=== PATIENT | female | born 1940 | race Caucasian/White ===

== ENCOUNTER 2016-04-01 17:30 | Inpatient (IN) | payer BC, MEDICARE ==
[~2016-04-01] VITALS: Ht 162.6 cm; Wt 67.4 kg
--- NOTE | ~2016-04-01 | CON ---
PATIENT'S NAME: PONCE COON [facility] AGE: 76 Y [address] ROOM: [address] [address] [place] [facility] [place]: 04/01/2016 Consultation DISCHARGE DATE: FAMILY PHYSICIAN: Pastor Fleming MD ATTENDING PHYSICIAN: OLIVIA SALCEDO DATE OF CONSULTATION: 04/02/2016 REFERRING PHYSICIAN: Penelope Najera MD NEUROLOGIC CONSULTATION TIME: 2:45 p.m. REASON FOR CONSULTATION: Worsening dementia. HISTORY OF PRESENT ILLNESS: This is a 76-year-old female, known to me professionally, who presents with dementia. According to the daughter, the patient has retired 2 years ago due to problems with memory. She actually saw Dr. Hanna in clinic in April 2015, and her MoCA at that time was remarkably well except for remembering items 3 minutes later. Her language and speech and thoughts were intact at that time. The daughter states since September, her dementia has gotten much worse. She has verbal outbursts, she thinks she is the president, she washed her hands in spaghetti sauce, and she tried to clean a hot stove. She also has some paranoia, using the cell phone she thinks the JEANCARLOS is listening in on her. This is now her new baseline. Most of the time, she is alert and oriented x3, but the patient has been having some headaches and grabbing the top of her head. The patient presented to the [facility] with a sodium of 125 and was referred to the hospital. Her sodium last month in the clinic was normal. She did have a urinalysis in the clinic too, which was normal. She has chronic anemia and hemochromatosis at baseline, but her CBC was baseline. On interviewing the patient, her memory from long-term is remarkably intact. 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 When we get to present day, she is a little bit more not intact. She states she is the president. She states she wants IV out of her arm because there is a needle in there, and it does not need to be there. She is also writing, and her writing is quite large, and she states she is the president. On the unit, the nurses state the patient does scream at times and not participate in the plan of care. She denies any falls or trauma, and daughter supports that statement. REVIEW OF SYSTEMS: In the review of systems, the patient denies any headache, pain at this time. Her only pain is with her IV. She denies any dizziness or vision loss. She does not participate fully in the interview and trying to change the subject PATIENT'S NAME: PONCE COON [facility] AGE: 76 Y [address] ROOM: [place] [address] [place] [facility] [place]: 04/01/2016 Consultation DISCHARGE DATE: FAMILY PHYSICIAN: Pastor Fleming MD ATTENDING PHYSICIAN: OLIVIA SALCEDO and winifred on certain subjects. PAST MEDICAL HISTORY: Includes diabetes type 2, supposed vascular dementia, depression, hyperlipidemia, and hypertension. ALLERGIES: SHE IS ALLERGIC TO CODEINE, WHICH MAKES HER SICK. HOME MEDICATIONS: 1. Trazodone 50 mg at h.s. 2. Namenda 5 mg p.o. b.i.d. 3. Aldactone 25 mg p.o. daily. 4. Altace 10 mg p.o. daily. 5. Tricor 145 mg daily. 6. Donepezil 10 mg p.o. q.h.s. 7. Metformin 1000 mg p.o. b.i.d. 8. Ferrous sulfate 325 mg p.o. daily. 9. Starlix 120 mg p.o. t.i.d. 10. Folic acid 0.8 mg p.o. daily. 11. Aspirin 81 mg p.o. q.h.s. 12. Vitamin D3 1000 units. She actually takes 2000 units p.o. daily. 13. Magnesium oxide 250 mg p.o. q.h.s. 14. Melatonin 3 mg x2 for a total of 6 mg p.o. q.h.s. 15. Multivitamin with calcium, iron, and minerals, she takes one tab p.o. daily. 16. Paroxetine HCl. 17. Vitamin B6 100 mg p.o. daily. 18. 500 mg p.o. daily. PAST SURGICAL HISTORY: She has had no surgeries. FAMILY HISTORY: Her father from lung cancer. He was a heavy smoker. Her mother from old age, but she could not remember what was the cause. SOCIAL HISTORY: Ponce is . Her is a professor at [employer]. She has a daughter that lives here in [place] and has been her caregiver during these episodes. PHYSICAL EXAMINATION: VITAL SIGNS: Blood pressure is 127/56, heart rate 62, respirations 18, and temperature afebrile. She is saturating 100% on room air. She denies pain at this time. PATIENT'S NAME: PONCE COON [facility] AGE: 76 Y [address] ROOM: [id number] [place], [place] [address] [place] [facility] [place]: 04/01/2016 Consultation DISCHARGE DATE: FAMILY PHYSICIAN: Pastor Fleming MD ATTENDING PHYSICIAN: OLIVIA SALCEDO GENERAL APPEARANCE: She is alert and oriented x2, in no acute distress. She does not know she is in the hospital at times. She does participate in the examination and the interview. HEENT: Her pupils are equal, round, and reactive to light. Nystagmus is not appreciated. Extraocular muscles intact. NECK: With no JVD. No cervical lymphadenopathy. No neck stiffness. No goiter. Appropriate posture. CARDIOVASCULAR: Regular rate and rhythm. Normal S1, S2 with no murmur, no rubs, no gallops. RESPIRATORY: Clear to auscultation bilaterally. ABDOMEN: Soft, nontender, nondistended with normal bowel sounds. NEUROLOGIC: She is able to state that she is in the hospital at [facility]. She perseverates on the sodium issue. She states she eats salt. She does not know why she is here, and that this is not a reason to be in the hospital. This is the fact that she does over and over on her exam. As far as motor skills, I will give her a 5/5 on the upper right and left, and lower right and left legs. Her sensation appears intact, although this is difficult for the patient to ascertain. I see no cogwheeling, no rigidity. Her gait is slightly shuffling. She does not have a flat affect. She will at times burst into loud yelling if she does not get her way immediately. DIAGNOSTICS: Included MRI done on March 21. It shows moderate cerebral atrophy with no significant senescent white matter disease. There is no acute ischemia, no hemorrhage, or extra-axial fluid or blood. There is normal pituitary and optic chiasm. Normal orbits. The intracranial vascular flow voids are symmetric and normal. She has in the moderate cerebral atrophy without focal brain lesions or significant senescent white matter disease in summary. She did have a TSH level of 3.310, which is within the normal range on our laboratory values. Her vitamin B12 was 439, which is in the normal range for our lab values. Her free T4 was 1.1, which is in the normal range. Her vitamin D total level done in September was 52.4, which is improving. Again, she appears anemic with a hemoglobin of 9.4, and MCV of 91.4, and MCH of 29.8. Her MPV was 9.3, platelets were 391,000, white count was 6600. ASSESSMENT AND PLAN: 1. Dementia. Difficult to classify this as a vascular dementia based on the MRI results. This patient also does not appear to have vascular disease. Question if this is a mixed dementia, such as Alzheimer's and frontotemporal dementia, especially with the behavioral issues. The patient has not had any seizure activity, and we can move forward with treating her with the Namenda and donepezil as ordered. She is getting the trazodone at night. Also, I will discuss with Dr. Hanna the possibility of adding an antipsychotic for behavioral issues, especially in light of this patient's possible Alzheimer's or frontotemporal PATIENT'S NAME: PONCE COON [facility] AGE: 76 Y [address] ROOM: [place] [address] [place] [facility] [place]: 04/01/2016 Consultation DISCHARGE DATE: FAMILY PHYSICIAN: Pastor Fleming MD ATTENDING PHYSICIAN: OLIVIA SALCEDO dementia symptoms. 2. Hyponatremia. This is being resolved and under the care of the hospitalist. 3. Diabetes type 2 is well controlled. 4. Depression. The patient is on Celexa. This does not seem to help the patient at all, and this has been discontinued by the hospitalist. I support this finding. 5. Hypertension. Once again, well-controlled by the hospitalist. 6. Hyperlipidemia, and the patient is on medications for this. Significant amount of time was spent obtaining old records for this patient from family practice. Attempted to obtain old records from Dr. Najera at [facility] but did not receive any. Quite a bit of time was spent with the patient and the family. They are having a hard time wrapping their mind around a dementia diagnosis. The patient's daughter especially did not buy the vascular dementia with the MRI not showing any kinds of infarcts. I discussed with her at length that, although the diagnosis may be tweaked, the outcome may be the same. Discussed the possibility of adding antipsychotic medications, and she is in agreement on that. All questions were answered that the daughter and the raised. Would recommend follow up in neurology clinic for medicaiton management. Thank you for this very interesting consult. If you have any questions, please do not hesitate to ask. PENELOPE SAMANIEGO APRN FOR JENNA HANNA MD PP/modl /[id number] d: 04/03/16 2305 t: 04/21/16 1536, CONSULTATION REPORT
--- NOTE | ~2016-04-01 | HP ---
PATIENT'S NAME: PONCE COON [facility] AGE: 76 Y [address] ROOM: [address] [address] [place] [facility] [place]: 04/01/2016 History & Physical DISCHARGE DATE: FAMILY PHYSICIAN: Pastor Fleming MD ATTENDING PHYSICIAN: OLIVIA SALCEDO DATE OF SERVICE: CHIEF COMPLAINT: Acute hyponatremia. HISTORY OF PRESENT ILLNESS: This is a 76-year-old female, who at baseline has vascular dementia. The story is obtained from the patient's daughter. The story is that at baseline the patient has vascular dementia and occasionally the patient has bizarre delusion such as she thinks that a cup of tea is actually a cup of coffee. She also thinks that every time somebody give her a cellphone to listen, she think the JEANCARLOS is calling her. This is her usual baseline. Most of the time, she is alert and oriented x3. However, the daughter noticed that yesterday, the patient was complaining of diffuse headache, unclear what intensity, and the patient got very upset by talking with a very loud voice and this is not her usual behavior. The patient's daughter gave her some coffee because the patient was asking for some coffee, but instead the daughter gave her some tea and the patient thought that it was actually coffee and she drank it and her headache went away totally. Initially, the daughter wanted to take the patient to the clinic, however, the patient refused to go. Today, the patient complained of headache again and again the patient's daughter gave her a cup of tea and the patient thought that it was a coffee, she drank it and headache improved again. The patient's daughter tried to ask her to go to see the physician again for evaluation and the patient refused again. Therefore, the patient's daughter give her the phone, saying that the JEANCARLOS was telling her to go and the patient agree because JEANCARLOS told her to go. The patient was seen in the clinic today at an outside facility [facility] the [facility] and the patient's sodium was found to be at 125, which when compared to the last month it was normal. This was given to me over the phone by the transferring physician fitter's assistant. I do not have the blood work documentation from last month here with the patient and the clinic is already closed. We do not have any blood work in our [facility] from the past to compare either. She also had a urinalysis, which was negative and CBC has a chronic anemia at baseline, otherwise other blood work were unremarkable. No imaging test was performed in the clinic. The patient was sent over here for management of hyponatremia apparently acute and somewhat asymptomatic. On interviewing the patient, the patient is alert and oriented x3 and answer my question appropriately and denies any headache. On neurological examination, there was no focal deficit at all. The patient is not drowsy, she is not sleepy, and she is very awake and very oriented x3. Upon further PATIENT'S NAME: PONCE COON [facility] AGE: 76 Y [address] ROOM: [place] [address] [place] [facility] [place]: 04/01/2016 History & Physical DISCHARGE DATE: FAMILY PHYSICIAN: Pastor Fleming MD ATTENDING PHYSICIAN: OLIVIA SALCEDO questioning, the patient is a very picky eater where she only eats the food she likes. If she is given some food that she does not like, she does not touch it; but even with some food that she likes, she only eats half of the food because she states that she does not want to gain too much weight. For the last few days, the patient also says that she has been having some poor appetite on top of her being very picky eater. No nausea. No vomiting. No diarrhea. No recent illness. No chest pain. No shortness of breath. No headache. No vision change. No recent fall. Her last fall was roughly 1 to 2 months ago, it was unwitnessed, and the patient denies any head trauma or any loss of consciousness at that time. REVIEW OF SYSTEMS: As mentioned in the history of present illness, all other systems reviewed and negative except those mentioned in the history of present illness. PAST MEDICAL HISTORY: 1. Diabetes type 2. 2. Vascular dementia. 3. Depression. 4. Hyperlipidemia. 5. Hypertension. ALLERGIES: CODEINE, WHICH MAKES HER SICK. HOME MEDICATIONS: Is currently being reconciled. She does not take any herbal medicine. SOCIAL HISTORY: The patient denies any cigarette, alcohol, or any illegal drug use. This is confirmed with the patient's daughter at the bedside. PAST SURGICAL HISTORY: None. FAMILY HISTORY: Father from lung cancer, he was heavy smoker at advanced age. Mother from old age following a cause that she could not remember. PHYSICAL EXAMINATION: VITAL SIGNS: At the time of my dictation; blood pressure 132/55, heart rate 59, respirations 24, temperature 97.9, saturation 100% on room air, and pain 0/10. GENERAL APPEARANCE: Alert and oriented x3, in no acute distress. Answer questions appropriately and follow commands appropriately. PATIENT'S NAME: PONCE COON [facility] AGE: 76 Y [address] ROOM: [address] [address] [place] [facility] [place]: 04/01/2016 History & Physical DISCHARGE DATE: FAMILY PHYSICIAN: Pastor Fleming MD ATTENDING PHYSICIAN: OLIVIA SALCEDO HEENT: Pupils equally round and reactive to light. Extraocular muscles intact. No anicteric sclerae. Nasal turbinates are normal bilaterally. Moist oral mucosa. NECK: No JVD. No cervical lymphadenopathy. No neck stiffness. No goiter. CARDIOVASCULAR: Regular rate and rhythm. Normal S1 and S2. No murmur. No rubs. No gallops. RESPIRATORY: Clear. Chest wall nontender to palpation. ABDOMEN: Soft, nontender, nondistended, normal bowel sounds, no hepatosplenomegaly. EXTREMITIES: No edema in upper or lower extremities. NEUROLOGIC: Grossly nonfocal. SKIN: No ulcer. No rash. No cyanosis. MUSCULOSKELETAL: No joint pain. No muscle pain. GENITOURINARY: Not examined given that it is not related to this admission. LABORATORY DATA: Laboratory data performed from the outside facility in the medical clinic in the [facility] today show urinalysis negative for UTI. White blood cells 7.0, hemoglobin 10.6, hematocrit 32.2, and platelet 407. Total protein 7.3, albumin 4.0, globulin 3.3, total bilirubin 0.2, alkaline phosphatase 71, ALT 29, AST 58, glucose 226, calcium 10.0, BUN 20, creatinine 0.9, GFR more than 60, sodium 125, potassium 4.8, chloride 90, CO2 of 24, and anion gap 11. IMAGES: No imaging test was performed while in the outside facility. ASSESSMENT AND PLAN: 1. Acute hyponatremia: I will consider this as acute asymptomatic hyponatremia given that the patient currently on my neurologic exam, the patient does not have any neurological deficit. The patient is alert, oriented x3, and in no acute distress. There is no seizure activity. There is no confusion. There is no altered mental status. There is no encephalopathy. There is no somnolence. Given that the patient had a fall one month ago and due to the acute confusion as described by the patient's daughter 2 days ago, I will go ahead and get a CT scan of the brain without contrast. I will also get blood work including hyponatremia workup including urine sodium, urine osmolality, and serum osmolarity with repeat labs in the morning again. I will also check a TSH and vitamin B12. I have already placed a phone call to on-call offline editor, Dr. Barbosa, and I have given him my personal assessment and what I think of the patient is having. I think, the patient has hypovolemia and hyponatremia from decreased oral intake and being a picky eater, and the patient was dry on examination. The plan will be normal PATIENT'S NAME: PONCE COON [facility] AGE: 76 Y [address] ROOM: [place] [address] [place] [facility] [place]: 04/01/2016 History & Physical DISCHARGE DATE: FAMILY PHYSICIAN: Pastor Fleming MD ATTENDING PHYSICIAN: OLIVIA SALCEDO saline 100 mL over 2 hours and check a sodium again and then will call the sodium report to Dr. Barbosa directly. Further plan depends on clinical course. I have already formulated the plan of care with the on- call offline editor, Dr. Barbosa, based on my personal assessment and I also explained to the nurses about the plan of care. 2. Regarding her diabetes type 2: I will check A1c in the morning and put on a sliding scale insulin and titrate as necessary. 3. Regarding her vascular dementia: Continue home dementia medication. 4. Depression: Continue home depression medication. 5. Hypertension: Continue home blood pressure medication. 6. Hyperlipidemia: Continue home antilipid medication. Currently, medication list is being reconciled and will be addressed once the medication list is ready. 7. Deep venous thrombosis prophylaxis. Compression devices. If the head CT did not show any bleeding, can start with Lovenox or heparin subcu for deep venous thrombosis prophylaxis. Time spent on the day of admission 40 minutes including chart review, examining and interviewing the patient, addressing all the questions and concerns that the patient and the patient's daughter had at the bedside. I also went over plan of care with the patient and the patient's daughter at the bedside. I also went over the plan of care with the nurse also. Further plan depends on clinical course. MD MARTIN LÓPEZ/ever /[id number] D: [id number] T: [id number] HISTORY & PHYSICAL
--- NOTE | ~2016-04-01 | DS ---
PATIENT'S NAME: PONCE COON [facility] AGE: 76 Y [address] ROOM: [place] [address] [place] [facility] [place]: 04/01/2016 Discharge Summary DISCHARGE DATE: 04/03/2016 FAMILY PHYSICIAN: Pastor Fleming MD ATTENDING PHYSICIAN: Mckay Pierce PRINCIPAL DISCHARGE DIAGNOSIS: Hyponatremia. SECONDARY DIAGNOSIS: 1. Dementia. 2. Diabetes mellitus. 3. Dyslipidemia. 4. Hypertension. CONSULTATIONS: 1. Neurology, Dr. Hanna, on 04/02/2016. 2. Dr. Barbosa, Nephrology, on 04/02/2016. PROCEDURES: None. COMPLICATIONS: None. 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 She has been at home with her daughter. She has been developing what has becoming more rapidly progressive dementia. Two days prior to admission, she has not been feeling well, was change in her intake, she was seen at the primary care physician's office with a sodium of 126 and admitted to the hospital for further evaluation and management. The patient was a little bit more confused. Prior to admission, she had been developing some agitation. She also had some delusions. She also had excessive intake of water. She was placed on a fluid restriction and her sodium corrected immediately. Currently sodium is 137. Dr. Hanna saw her today in consultation with his nurse practitioner, who had a long discussion with the family yesterday. The past medical record as mentioned that she has vascular dementia, it is unclear how that diagnosis was made and based on imaging and history, this is more likely an Alzheimer's type dementia with behavioral disturbances. Recommendations from Neurology today are to wean off the Celexa, I have told the daughter to take one tab every other day for seven doses and then one tab every third day for seven doses and she should be able to stop at that time. LABORATORY DATA: Her glucoses have ranged from 91 to 210. Complete metabolic panel from today showed sodium 137, potassium 4.9, chloride 105, CO2 22, PATIENT'S NAME: PONCE COON [facility] AGE: 76 Y [address] ROOM: [place] [address] [place] [facility] [place]: 04/01/2016 Discharge Summary DISCHARGE DATE: 04/03/2016 FAMILY PHYSICIAN: Pastor Fleming MD ATTENDING PHYSICIAN: Mckay Pierce glucose 93, calcium 9.4, BUN 21, creatinine 1.1 with EGFR of 48. Total protein and albumin slightly low at 5.9 and 3.2. Magnesium was 2.3. Her vitamin B12 level is 439, her free T4 was 1.1. TSH was 3.310. Complete blood count on the day of admission on 04/02/2016, showed white blood cells 6.6, mild anemia with a hemoglobin 9.4, hematocrit 28.8, platelets 291,000. CT of the head showed moderate atrophy. No masses or hemorrhages. No extra-axial fluid or blood ever since sinuses were found to be normal. At this time, daughter and the patient are in agreement with discharge to home. There may be a plan for a memory unit admission after this. INSTRUCTIONS AT DISCHARGE: DIET: Diabetic low-fat diet with fluid restriction of 1500 mL per day. ACTIVITY: As tolerated. FOLLOWUP: Follow up with Dr. Fleming in five days. She will have a basic metabolic panel drawn at that time. MEDICATIONS AT DISCHARGE: 1. Aspirin 81 mg per day. 2. Vitamin D 2000 units per day. 3. Namenda 5 mg b.i.d. 4. Multiple vitamin daily. 5. L-Theanine 500 mg daily. 6. Donepezil 10 mg at h.s. 7. Tricor 145 mg daily. 8. Folic acid 0.8 mg daily. 9. Ramipril 10 mg daily. 10. Magnesium oxide 250 mg at h.s. 11. Melatonin 6 mg at h.s. 12. Metformin 1 g b.i.d. 13. Paroxetine 100 mg daily. 14. Aldactone 25 mg daily. 15. Trazodone 50 mg at h.s. 16. Citalopram is to be weaned off gradually as described above. 17. Ferrous sulfate 325 mg daily. 18. Starlix 120 mg t.i.d. 19. Seroquel 6.25 mg p.o. up to four times daily p.r.n. agitation, script has been given for this. Greater than 30 minutes was involved with evaluating the patient prior to the neurology assessment and summarizing the discharge findings with the patient and clarifying this with Neurology. PATIENT'S NAME: PONCE COON [facility] AGE: 76 Y [address] ROOM: [place] [address] [place] [facility] [place]: 04/01/2016 Discharge Summary DISCHARGE DATE: 04/03/2016 FAMILY PHYSICIAN: Pastor Fleming MD ATTENDING PHYSICIAN: Mckay Pierce THELMA SMITH MD LM/modgaby /[id number] CC: MD Pastor Dominguez MD M Imtaiz Islam, MD d: 04/04/16 1056 t: 04/20/16 1423, DISCHARGE SUMMARY
--- NOTE | ~2016-04-01 | CON ---
PATIENT'S NAME: POCNE COON [facility] AGE: 76 Y [address] 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 PENELOPE SAMANIEGO APRN FOR JENNA BURDICK MD PP/modl /[id number] d: 04/03/162199 t: 04/21/16 1533, CONSULTATION REPORT
--- NOTE | ~2016-04-01 | CON ---
PATIENT'S NAME: PONCE COON [facility] AGE: 76 Y [address] ROOM: [address] [address] LOCATION: [facility] [place] ADMIT DATE: 04/01/2016 Consultation DISCHARGE DATE: FAMILY PHYSICIAN: Pastor Fleming MD ATTENDING PHYSICIAN: OLIVIA SALCEDO DATE OF CONSULTATION: 04/02/2016 REFERRING PHYSICIAN: Penelope Najera MD REQUESTING PHYSICIAN: Dr. Salcedo. REASON FOR CONSULTATION: Symptomatic hyponatremia. HISTORY OF PRESENT ILLNESS: The patient is a 76-year-old white female who has dementia, but she is taken care of by her daughter at home. The patient has not been feeling well for the last 2 days. She was thought to be little more confused and was taken to her primary care physician's office. Routine labs showed her sodium was 126. She was admitted to the hospital for further management. Her outpatient medication does include trazodone and Celexa, and apparently she has been taking Celexa for more than 2 to 3 months. Her daughter reports that she drinks lots and lots of liquid probably a gallon or more a day. Apparently, she was having headache for the last 2 days and she was drinking more to reduce her headache. She is not on any thiazide diuretic. She has no history of tobaccoism. She has no history of recent weight loss. No history of active malignancy. I have been asked to see her because the sodium level was low. REVIEW OF SYSTEMS: GENERAL: She denies any fever, chills, or rigors. HEENT: She complains of headache, but that is resolved at this time. CARDIOVASCULAR: Denies any chest pain, dyspnea on exertion. RESPIRATORY: Denies any cough or sputum production. GI: She has poor and very poor appetite. She is a lifelong vegetarian, but she does eat eggs. : Denies any dysuria or frequency. MUSCULOSKELETAL: She denies any joint pain or swelling. SKIN: Denies any rash or pruritus. Denies any allergies or hay fever. HEMATOLOGIC/LYMPHATICS: Denies any lymph node enlargement or easy bruising. ENDOCRINE: Denies any heat or cold intolerance. PSYCH: Denies any sadness, crying spells, poor concentration, or panic attack. PAST MEDICAL HISTORY: Diabetes mellitus, vascular dementia, depressive illness, hyperlipidemia and PATIENT'S NAME: MOSIG, R [facility] AGE: 76 Y [address] ROOM: [place] [address] LOCATION: [facility] ADMIT DATE: 04/01/2016 Consultation DISCHARGE DATE: FAMILY PHYSICIAN: Pastor Fleming MD ATTENDING PHYSICIAN: OLIVIA SALCEDO hypertension. ALLERGIES: SHE IS ALLERGIC TO CODEINE. MEDICATIONS: 1. Aricept 10 mg p.o. at bedtime. 2. Aspirin 81 mg a day. 3. Desyrel 50 mg p.o. at bedtime. 4. Glucophage 500 mg two twice a day. 5. Magnesium oxide 500 mg at bedtime. 6. Melatonin 2 tablets at bedtime. 7. Namenda 5 mg twice a day. 8. NovoLog with sliding scale. 9. Celexa 40 mg a day. PAST SURGICAL HISTORY: None. SOCIAL HISTORY: She lives at home with her . She has advanced dementia. Her daughter is involved in her care. No history of tobacco or alcohol. FAMILY HISTORY: Father of lung cancer, he was a heavy smoker. Mother from old age. PHYSICAL EXAMINATION: GENERAL APPEARANCE: A 76-year-old, lean and thin white female lying in the hospital bed, in no acute distress. VITAL SIGNS: Temperature 97.5, pulse 62, systolic blood pressure 138 and diastolic 60. HEENT: Head normocephalic. Pupils are round and equal, normal eyelid, and pale conjunctivae. Oral cavity clear. Moist mucosa. NECK: Trachea is central. No thyromegaly. No bruit. HEART: Sounds are audible in all the areas without any gallop or murmur. Pulses regular rhythm. LUNGS: Bilaterally clear to auscultation. No intercostal retraction. ABDOMEN: Soft, nontender. I could not palpate liver or spleen. EXTREMITIES: There is no clubbing or cyanosis. SKIN: No signs of vasculitis. LYMPHATICS: Did not examine lymphatics. HIGHER PSYCHIATRIC FUNCTION: She seems to have normal speech, but she has problem with her memory. [facility] 76 [facility] [address] ROOM: [place] [address] LOCATION: [facility] ADMIT DATE: 04/01/2016 Consultation DISCHARGE DATE: FAMILY PHYSICIAN: Pastor Fleming MD ATTENDING PHYSICIAN: OLIVIA SALCEDO LABORATORY DATA: Blood work shows BUN of 19, creatinine of 0.9, sodium 130. Albumin of 3.4, alkaline phosphatase 65, magnesium of 2.3. Hemoglobin 9.4 and hematocrit 28.8. Serum osmolality is 274. TSH is 3.3. ASSESSMENT: 1. Symptomatic hyponatremia. The patient had a sodium level of 126, but her daughter reports that normally she drinks about a gallon of water and she was drinking even more over the last 48 hours. She is also eating poorly. Normally she is a vegan and she only has egg. I assume that her initial low sodium is probably related to excessive free water and a little bit less solute. Although she has been on trazodone and Celexa, which can cause nonosmotic release of ADH and may have contributed to some extent to hyponatremia. 2. Diabetes mellitus. 3. Dementia. 4. Hypertension. 5. Hyperlipidemia. 6. Depressive illness. PLAN: I agree with ordering urine osmolality and urine sodium. I also agree with ordering TSH. I will continue on her Celexa and trazodone for now. I will however put her on fluid restriction. Her sodium went up from 126 to 130 with only 150 mL of normal saline. I think the most likely reason for this correction was because she was not having free water when she was in the hospital. I believe that her sodium could be stabilized by cutting down her free water to 50 ounces in 24 hours. I also encouraged her to eat more protein. Since we are going to continue on Celexa and trazodone, we should recheck her sodium level next Wednesday. I had a discussion with Dr. Pastor Fleming about this. In case if she is hyponatremic, then we have to switch her Celexa to Wellbutrin or Remeron. Thank you very much allowing me to participate in this patient's care. I will follow closely with you. M MD DEBORA KEYES/ever /[id number] PATIENT'S NAME: PONCE COON [facility] AGE: 76 Y [address] ROOM: [place] [address] LOCATION: [facility] [place] ADMIT DATE: 04/01/2016 Consultation DISCHARGE DATE: FAMILY PHYSICIAN: Pastor Fleming MD ATTENDING PHYSICIAN: OLIVIA SALCEDO CC: Pastor Fleming MD d: 04/02/16 2136 t: 04/07/16 0831, CONSULTATION REPORT
--- NOTE | 2016-04-01 19:01 | NUR ---
PATIENT'S DAUGHTER IS THE MAIN HISTORIAN AND DPOA WELL. SHE APPEARS TO BE VERY INVOLVED IN PATIENT'S CARE. SPOUSE IS AT BEDSIDE. IT IS REPORTED THAT THE PATIENT WAS TAKEN TO THE ER ON 04/01/16 BUT WAS NOT SEEN. THE DAUGHTER TOOK HER TO THE [facility] TODAY (04/02/16) WHERE LABWORK WAS PERFORMED. IT WAS DETERMINED THE PATIENT NEEDED TO BE ADMITTED TO THE HOSPITAL DUE TO A SODIUM LEVEL OF 125. PATIENT HAS A HISTORY OF DEMENTIA AND DIABETES WHICH IS CONTROLLED WITH ORAL MEDICATIONS. THERE ARE SIGNS OF CONFUSION THROUGHOUT THE ASSESSMENT. SHE IS PLACED ON HIGH FALL RISK PRECAUTIONS DUE TO CONFUSION AND HISTORY OF FALLS. ALLERGIES TO CODEINE AND MINOCYCLINE ALTHOUGH FAMILY DOES NOT RECALL MINOCYCLINE BEING AN ALLERGY. BED ALARM IS IN PLACE AND DAUGHTER IS AT BEDSIDE.
[2016-04-01] MEDS ORDERED: DESYREL50 MG PO (20:15)
[2016-04-01] MEDS ORDERED: NAMENDA5 MG PO (20:15)
[2016-04-01] MEDS ORDERED: TRICOR145 MG PO (20:16)
[2016-04-01] MEDS ORDERED: ALTACE10 MG PO (20:16)
[2016-04-01] MEDS ORDERED: ALDACTONE25 MG PO (20:16)
[2016-04-01] MEDS ORDERED: DONEPEZIL HCL10 MG PO (20:17)
[2016-04-01] MEDS ORDERED: GLUCOPHAGE1000 MG PO (20:17)
[2016-04-01] MEDS ORDERED: FEOSOL325 MG PO (20:17)
[2016-04-01] MEDS ORDERED: STARLIX120 MG PO (20:18)
[2016-04-01] MEDS ORDERED: ASPIRIN LO-DOSE81 MG PO (20:18)
[2016-04-01] MEDS ORDERED: FOLIC ACID0.8 M1 PO (20:18)
[2016-04-01] MEDS ORDERED: MAGNESIUM250 MG PO (20:19)
[2016-04-01] MEDS ORDERED: MELATONIN3 MG PO (20:19)
[2016-04-01] MEDS ORDERED: VITAMIN D1000 UNIT PO (20:19)
[2016-04-01] MEDS ORDERED: MULTIPLE VITAM1 EAC2 PO (20:20)
[2016-04-01] MEDS ORDERED: L-THREONINE500 MG PO (20:20)
[2016-04-01] MEDS ORDERED: VITAMIN B-6100 MG PO (20:20)
--- NOTE | 2016-04-02 04:00 | NUR ---
Significant Event: Patient alert and oriented to self/birthday. Knows certain things, but is pleasently confused. States she is the president. Daughter at bedside. IV to L) forearm. Received 200ml NS per Dr. Barbosa, sodium after was 130, Dr. Barbosa ordered to D/C fluids and check labs in am. Planning for nephrology consult in am. History of dementia. Head CT done. UA done. Fall and aspiration precautions. Takes pills one at a time. Refusing pneumatics at this time. Vitals stable and on room air. Follow up: Monitor sodium
[2016-04-02 05:26] LABS: HEMATOCRIT 28.8 % (33.0-46.0); HEMOGLOBIN 9.4 g/dL (10.0-15.0); MCH 29.8 pg (27.0-34.0); MCHC 32.6 gm/dL (32.0-36.5); MCV 91.4 fl (83.0-98.0); MPV 9.3 fl (9.4-12.4); RBC 3.15 M/uL (3.50-5.50); WBC 6.6 K/uL (4.0-11.0)
[2016-04-02 05:46] LABS: ALBUMIN 3.4 gm/dL (3.5-5.0); ALK PHOS 55 IU/L (33-138); ALT 16 IU/L (12-78); ANION GAP 13.3 (10.0-19.0); AST 18 IU/L (10-40); BLOOD UREA NITROGEN 19 mg/dL (6-24); CALCIUM 9.2 mg/dL (8.5-10.5); CHLORIDE 101 mMol/L (96-110); CO2 25 mMol/L (22-32); CREATININE 0.9 mg/dL (0.5-1.1); ESTIMATED GFR (MDRD EQUATION) > 60; PHOSPHORUS 3.2 mg/dL (2.5-4.9); POTASSIUM 4.3 mMol/L (3.7-5.1); SODIUM 135 mMol/L (135-145); TOTAL BILIRUBIN 0.2 mg/dL (0.0-1.5); TOTAL PROTEIN 6.2 g/dL (6.0-8.4)
[2016-04-02 05:50] LABS: MAGNESIUM 2.3 mg/dL (1.3-2.6)
--- NOTE | 2016-04-02 13:02 | NUR ---
Met with patient and her daughter Joy at the bedside today. Introduced myself and the role of the CM department. Patient is joyfully confused. She is singing in the room and believes she is the president and will be moving to the [place] soon. Daughter states that they have been managing caring for patient at home, but recently this has become a much more difficult task. Joy keeps patient during the day from [id number] and then takes patient home and her dad/patient's cares for her at night. The family has put a deposit on a room at the [facility] and the room is reserved for patient with the plan to move her there in the next 30 days. The family just has to provide furniture for the room and then patient can move in. Sadia has already been assessed by [facility]. Per Joy she is going to call [facility] to find out when they would need this months payment and also call her and dad to see if they can get items to [facility] in the next 24 hours. I shared all of this would SARAH Benitez so she is aware of the families plan. Per Francisca patient will likely discharge tomorrow. I will continue to follow while here.
--- NOTE | 2016-04-02 13:03 | NUR ---
I have examined the student charting and find it acceptable. NADJA Jackson
--- NOTE | 2016-04-02 15:46 | NUR ---
Significant Event: Pt had student nurse until noon. Up with 1 assist to the br. Voids frequently in 100ml amounts. Pt disoriented most of shift. Could tell me the year but still believes she is the technical operations vice president. Bed alarm on for safety. Possible dc to home tomorrow. Follow up:
--- NOTE | 2016-04-03 04:50 | NUR ---
Significant Event: Patient is alert and oriented to place and time however she continues to shift from being oriented to person to thinking she is the president. she was very upset at the beginning of the shift she was demanding to go home. Yelling at staff and her family who continued to try and calm her. I got a telephone order from dr. Celeste for a one time order for seriquil. Her daughter decided she didn't want her to have it. She did calm down an sleep from 2300 on. She is a one person assist to bathroom and to walk in rg. Family stays in room with her. 1500 fluid restriction 1000 day and 500 evening. She is a vegitarian diabetic diet. Accuchecks ACHS. She got 2 units this shift. Family is considering placement on a dementia unit at this time. Bed alarm for safty. Vital signs stable on room air. refusing pneumatics at this time. Follow up:
[2016-04-03 05:38] LABS: ALBUMIN 3.2 gm/dL (3.5-5.0); ANION GAP 14.9 (10.0-19.0); CALCIUM 9.4 mg/dL (8.5-10.5); CREATININE 1.1 mg/dL (0.5-1.1); POTASSIUM 4.9 mMol/L (3.7-5.1); TOTAL BILIRUBIN 0.2 mg/dL (0.0-1.5); TOTAL PROTEIN 5.9 g/dL (6.0-8.4)
--- NOTE | 2016-04-03 13:22 | NUR ---
Met with daughter Joy, patient and SARAH Benitez- plan is to discharge patient to home with daughter today- daughter will then transfer patient to [facility] as they have a room reserved there for patient. No other discharge needs at this time.
--- NOTE | 2016-04-03 14:26 | NUR ---
Significant Event: Pt voids frequently and sets off bed alarm frequently. Confused, calm this am but had an episode around 1330 where she starting to scream and states she has a severe headache. As soon as tylenol was given pt calmed down. Family at bedside. Pt pulled her IV out, order to leave out. Neurologist to come see patient. Possible dc this evening. Follow up:
[2016-04-03] MEDS ORDERED: CELEXA20 MG PO (20:01)
[2016-04-03] MEDS ORDERED: SEROQUEL25 MG PO (20:03)
--- NOTE | 2016-04-04 03:54 | NUR ---
Discharge instructions gone over with daughter. Daughter states understanding and that she didn't have any questions. Daughter and patient escorted to front lobby and helped into family car via staff member.
--- NOTE | 2016-04-04 05:45 | NUR ---
Patient discharged from hospital at 2028. Went home with daughter and . Patient had no IV. Vital signs stable and on room air. General dishcharge instructions given to daughter as well as new prescriptions. Home meds sent home with daughter. Patient denies pain and nausea. No chest pain or shortness of breath. Wheeled out in wheelchair by staff. Family/patient deny any questions at this time.
== END 2016-04-03 20:40 | disposition disaster alternative care site (69) | DRG 641 ==
LOC: GMSU 17:30
PROVIDERS: Internal Medicine; ADMIT Internal Medicine
DX: E87.1 Hypo-osmolality and hyponatremia (principal); E86.1 Hypovolemia; F01.51 Vascular dementia, unspecified severity, with behavioral disturbance; I67.2 Cerebral atherosclerosis; E11.9 Type 2 diabetes mellitus without complications; E78.5 Hyperlipidemia, unspecified; F32.9 Major depressive disorder, single episode, unspecified; I10 Essential (primary) hypertension
CPT/HCPCS: J7050

== ENCOUNTER 2016-05-30 21:48 | Emergency (ER) | payer BC, MEDICARE ==
--- NOTE | ~2016-05-30 | ER ---
[facility] 76 [facility] [address] ROOM: [place] [address] LOCATION: [facility] ADMIT DATE: 05/30/2016 ER/Outpatient Report DISCHARGE DATE: 05/30/2016 FAMILY PHYSICIAN: Pastor Fleming MD ATTENDING PHYSICIAN: Vega Jeong Time of Arrival: 2148 hours. Time of Evaluation: 2159 hours. CHIEF COMPLAINT: Fever. HISTORY OF PRESENT ILLNESS: The patient is a 76-year-old female, who presents to the emergency department today with chief complaint of fever. She is having some nausea and vomiting x2. Does report a cough. No chest pain. No shortness of breath. She is having some chills. No troubles urinating. Denies any pain. No abdominal pain. PAST MEDICAL HISTORY: [id number] diabetes, vascular dementia, depression, dyslipidemia, hypertension. PAST SURGICAL HISTORY: None. SOCIAL HISTORY: The patient denies any tobacco, alcohol, or illicit drug use. ALLERGIES: TO NAMENDA, HALDOL, CODEINE, CITALOPRAM. MEDICATIONS: Please see list. PRIMARY CARE DOCTOR: Dr. Fleming. REVIEW OF SYSTEMS: All systems are reviewed by myself and are negative with the exception of those discussed in the HPI and past medical history. PHYSICAL EXAMINATION: VITAL SIGNS: Weight 69 kg, blood pressure 126/56, pulse 89, respiratory rate 18, temperature 100.0, oxygen saturation 98% on room air. PATIENT'S NAME: JAYMIE [facility] AGE: 76 Y [address] ROOM: [place] [address] LOCATION: [facility] ADMIT DATE: 05/30/2016 ER/Outpatient Report DISCHARGE DATE: 05/30/2016 FAMILY PHYSICIAN: Pastor Fleming MD ATTENDING PHYSICIAN: Vega Jeong GENERAL: The patient is a 76-year-old female, who appears stated age, in no acute distress at this time. HEENT: Head: Normocephalic, atraumatic. Pupils are equal, round, and reactive to light and accommodation. Extraocular motions are intact. Nares are patent bilaterally. TMs are clear. Oropharynx is clear. NECK: Supple. There is no nuchal rigidity. CARDIOVASCULAR: Regular rate and rhythm. No murmurs, rubs, or gallops. LUNGS: Clear to auscultation bilaterally. No wheezes, rales, or rhonchi. ABDOMEN: Soft, nontender, and nondistended. No rebound, rigidity, or guarding. MUSCULOSKELETAL: The patient moves all 4 extremities. 5/5 muscle strength. SKIN: Warm and dry. There are no rashes or lesions noted. LABORATORY DATA AND X-RAYS: Urinalysis shows 25 leukocyte esterase, 15 protein, 1000 glucose, 10 blood, 10- 20 wbc's, 0-2 rbc's and epithelials, rare bacteria. CBC is unremarkable. Lactate is 1.8. Coags are normal. CMP unremarkable except for sodium 130, CO2 of 21, glucose 251. LFTs are normal. CK is normal. CK-MB and troponin are normal. ProBNP is 1058. Procalcitonin is 0.14. Influenza is negative. IMPRESSION: 1. Acute urinary tract infection, suspect bladder. 2. Acute febrile illness. 3. Initial visit. EMERGENCY DEPARTMENT COURSE: The patient was brought back to the examination room. Seen and evaluated by myself. IV is established. Laboratory analysis and imaging are obtained as described above. The patient was given a liter of normal saline. She did take Tylenol just prior to arrival. She was also given 4 mg of Zofran. I have discussed the results with the patient and her family who is at the bedside. I have written for Zofran as needed for nausea, vomiting, as well as ciprofloxacin for 3 days. I have discussed the recommendation to follow with Dr. Fleming in 2 to 3 days for re-evaluation. I have discussed return to care instructions including worsening symptoms or any other concerns to return to the emergency department as soon as possible. The patient is agreeable. Daughter is agreeable without further questions at this time. DISPOSITION: The patient discharged home in good condition. VEGA JEONG DO PATIENT'S NAME: PONCE COON [facility] AGE: 76 Y [address] ROOM: [place] [address] LOCATION: [facility] ADMIT DATE: 05/30/2016 ER/Outpatient Report DISCHARGE DATE: 05/30/2016 FAMILY PHYSICIAN: Pastor Fleming MD ATTENDING PHYSICIAN: Vega Jeong/ever /[id number] d: 05/31/16 0115 t: 05/31/16 1846, OUTPATIENT REPORT
[~2016-05-30 21:48] MED LIST: ALDACTONE25 MG PO; ALTACE10 MG PO; ASPIRIN LO-DOSE81 MG PO; CELEXA20 MG PO; DESYREL50 MG PO; DONEPEZIL HCL10 MG PO; FEOSOL325 MG PO; FOLIC ACID0.8 M1 PO; GLUCOPHAGE1000 MG PO; L-THREONINE500 MG PO; MAGNESIUM250 MG PO; MELATONIN3 MG PO; MULTIPLE VITAM1 EAC2 PO; NAMENDA5 MG PO; SEROQUEL25 MG PO; STARLIX120 MG PO; TRICOR145 MG PO; VITAMIN B-6100 MG PO; VITAMIN D1000 UNIT PO
[2016-05-30 22:18] LABS: BILIRUBIN URINE NEGATIVE (NEGATIVE); BLOOD URINE 10 /UL (NEGATIVE); COLOR URINE YELLOW (YELLOW); GLUCOSE URINE 1000 mg/dL (NEGATIVE); KETONE URINE NEGATIVE (NEGATIVE); LEUKOCYTES URINE 25 /UL (NEGATIVE); NITRITE URINE NEGATIVE (NEGATIVE); PROTEIN URINE 15 mg/dL (NEGATIVE); TURBIDITY URINE CLEAR (CLEAR); UROBILINOGEN URINE NORMAL (NORMAL)
[2016-05-30 22:26] LABS: EPITHELIAL URINE 0-2 #/HPF (NEGATIVE); RBC URINE 0-2 #/HPF (NEGATIVE)
[2016-05-30 22:27] LABS: BACTERIA URINE RARE (NEGATIVE)
[2016-05-30 22:35] LABS: BASOPHIL % 0.4 %; EOSINOPHIL % 0.1 %; HEMATOCRIT 33.6 % (33.0-46.0); HEMOGLOBIN 10.9 g/dL (10.0-15.0); IMMATURE GRANULOCYTE % 0.2 %; LYMPHOCYTE # 0.7 K/uL (0.8-4.0); LYMPHOCYTE % 8.8 %; MCH 29.9 pg (27.0-34.0); MCHC 32.4 gm/dL (32.0-36.5); MCV 92.1 fl (83.0-98.0); MONOCYTE # 0.5 K/uL (0.0-1.0); MONOCYTE % 6.1 %; MPV 9.9 fl (9.4-12.4); NEUTROPHIL # (ANC) 6.9 K/uL (1.8-7.8); NEUTROPHIL % 84.4 %; NRBC % 0 /100WBC (0-0.00); PLATELET COUNT 349 K/uL (150-450); RBC 3.65 M/uL (3.50-5.50); WBC 8.2 K/uL (4.0-11.0)
[2016-05-30 22:47] LABS: INR - (THERAPEUTIC) 1.04 (0.92-1.07); PROTIME 10.9 SECONDS (9.8-11.4); PTT 30 SECONDS (25-32)
[2016-05-30 22:53] LABS: ALBUMIN 3.5 gm/dL (3.5-5.0); ALK PHOS 63 IU/L (33-138); ALT 20 IU/L (12-78); ANION GAP 12.1 (10.0-19.0); AST 14 IU/L (10-40); BLOOD UREA NITROGEN 15 mg/dL (6-24); CALCIUM 9.1 mg/dL (8.5-10.5); CHLORIDE 101 mMol/L (96-110); CO2 21 mMol/L (22-32); CPK 55 IU/L (21-215); CREATININE 0.9 mg/dL (0.5-1.1); POTASSIUM 4.1 mMol/L (3.7-5.1); SODIUM 130 mMol/L (135-145); TOTAL BILIRUBIN 0.2 mg/dL (0.0-1.5); TOTAL PROTEIN 7.2 g/dL (6.0-8.4)
[2016-05-30 22:57] LABS: ESTIMATED GFR (MDRD EQUATION) > 60
== END 2016-05-30 23:49 | disposition disaster alternative care site (69) ==
LOC: GMED 21:48
PROVIDERS: Emergency Medicine
DX: N39.0 Urinary tract infection, site not specified (principal); E11.9 Type 2 diabetes mellitus without complications; I10 Essential (primary) hypertension; F32.9 Major depressive disorder, single episode, unspecified; E78.5 Hyperlipidemia, unspecified; Z88.5 Allergy status to narcotic agent; Z88.8 Allergy status to other drugs, medicaments and biological substances
CPT/HCPCS: J2405; J7030